=== PATIENT | female | born 1980 | race Caucasian/White ===

== ENCOUNTER 2024-07-28 19:58 | Emergency (ER) | payer SELFPAY ==
[~2024-07-28] VITALS: Ht 157.5 cm; Wt 81.6 kg
[2024-07-28 20:23] VITALS: O2SAT 100
[2024-07-28] MEDS ORDERED: NAPR-1176 MT (21:18)
[2024-07-28] MEDS ORDERED: CYCL5TAB MT (21:18)
[2024-07-28] MEDS: CYCLOBENZAPRINE 10MG TABLET PO ONE (22:35)
[2024-07-28 22:36] VITALS: BP 110/69; PULSE 68; RESP 19; TEMP 36.55848; O2SAT 100
[2024-07-28] MEDS: ACETAMINOPHEN 325MG TABLET PO ONE (22:36)
== END 2024-07-28 22:39 | disposition home or self-care (01) ==
LOC: ER 19:58
DX: S80.02XA Contusion of left knee, initial encounter (principal); W18.39XA Other fall on same level, initial encounter; Y93.89 Activity, other specified; Y92.89 Other specified places as the place of occurrence of the external cause; Y99.8 Other external cause status
CPT/HCPCS: 73562; 99283; Z7610

== ENCOUNTER 2024-10-11 01:39 | Emergency (ER) | payer MEDICAID, OTHER ==
[~2024-10-11] VITALS: Ht 157.5 cm; Wt 73.0 kg
[~2024-10-11 01:39] MED LIST: CYCL5TAB3 MT; NAPR-1176 MT
[2024-10-11 02:09] VITALS: O2SAT 100
[2024-10-11] MEDS ORDERED: HYDROCODONE/ACETAMINOPHEN 5/325MG TABLET PO ONE (03:00)
[2024-10-11] MEDS ORDERED: HYDR-4001 MT (05:11)
[2024-10-11] MEDS ORDERED: ONDA4TAB50 MT (05:11)
[2024-10-11] MEDS ORDERED: IBUP-2029 MT (05:11)
[2024-10-11 05:50] VITALS: TEMP 36.89184; O2SAT 100
[2024-10-11 06:05] VITALS: BP 120/87; PULSE 82; RESP 18
[2024-10-11] MEDS: HYDROCODONE/ACETAMINOPHEN 5/325MG TABLET PO NR (06:05)
[2024-10-11] MEDS: ONDANSETRON 4MG ODT PO ONE (06:05)
[2024-10-11] MEDS: ONDANSETRON 4MG ODT PO NR (06:07)
== END 2024-10-11 06:09 | disposition home or self-care (01) ==
LOC: ER 01:39
DX: S00.83XA Contusion of other part of head, initial encounter (principal); M54.9 Dorsalgia, unspecified; M54.2 Cervicalgia; G44.309 Post-traumatic headache, unspecified, not intractable; Y08.89XA Assault by other specified means, initial encounter; Y93.89 Activity, other specified; Y92.89 Other specified places as the place of occurrence of the external cause; Y99.8 Other external cause status
CPT/HCPCS: 99284; 70450; 81025; 70486; 72125; Q0162

== ENCOUNTER 2024-11-25 12:01 | Emergency (ER) | payer MEDICAID, OTHER ==
[~2024-11-25] VITALS: Ht 157.5 cm; Wt 78.0 kg
[~2024-11-25 12:01] MED LIST changes: +HYDR-4001 MT; +IBUP-2029 MT; +ONDA4TAB50 MT
[2024-11-25 12:02] VITALS: O2SAT 99
[2024-11-25 12:38] LABS: BASOPHILS % 0.4 % (0.0-2.0); EOSINOPHILS % 1.8 % (0.0-5.0); HEMOGLOBIN. 12.7 g/dL (12.0-16.0); MEAN CORPUSCULAR HEMOGLOBIN 30.2 pg (28.0-32.0); MEAN CORPUSCULAR HGB CONC 33.5 g/dL (31.0-37.0); MEAN CORPUSCULAR VOLUME 90.1 fL (81.0-99.0); MEAN PLATELET VOLUME 7.9 fl (7.4-10.4); MONOCYTES % 6.1 % (2.0-8.0); NEUTROPHILS % 61.7 % (40.0-76.0); PLATELET 369 x1000/uL (130-400); RED BLOOD CELL COUNT 4.22 mill/uL (4.2-5.4); RED CELL DISTRIBUTION WIDTH 13.9 % (11.6-14.6); WHITE BLOOD COUNT 8.8 x1000/uL (4.5-11.0)
[2024-11-25] MEDS: SODIUM CHLORIDE 0.9% 1,000 ML IV ONE (12:49)
[2024-11-25] MEDS: ONDANSETRON HCL 4MG/2ML INJ IV STA (12:49)
[2024-11-25 12:52] LABS: CHLORIDE 109 mEq/L (98-107); POTASSIUM 3.5 mEq/L (3.5-5.1); SODIUM 142 mEq/L (136-145)
[2024-11-25 12:53] LABS: CALCIUM 9.2 mg/dL (8.7-10.4); CARBON DIOXIDE 26 mEq/L (21-32)
[2024-11-25 12:56] LABS: INR 0.9; PROTHROMBIN TIME 10.3 sec (9.6-11.0)
[2024-11-25 12:58] LABS: CREATININE 0.7 mg/dL (0.6-1.0); GLUCOSE 104 mg/dL (70-105); UREA NITROGEN BLOOD 8 mg/dL (9-23)
[2024-11-25 13:00] LABS: ALANINE AMINOTRANSFERASE 26 IU/L (10-49); ASPARTATE AMINOTRANSFERASE 48 IU/L (<34); BILIRUBIN DIRECT 0.1 mg/dL (<=3.0); BILIRUBIN TOTAL 0.4 mg/dL (0.1-1.0)
[2024-11-25 13:01] LABS: HCG SCREEN NEGATIVE; PROTEIN TOTAL 7.5 g/dL (6.0-8.3)
[2024-11-25 13:31] LABS: ETHANOL BLOOD < 10 mg/dL (<10)
[2024-11-25] MEDS ORDERED: ONDA4TAB50 MT (14:51)
[2024-11-25] MEDS ORDERED: IBUP-2029 MT (14:51)
[2024-11-25 15:03] VITALS: BP 125/30; PULSE 68; RESP 16; TEMP 36.94740; O2SAT 98
== END 2024-11-25 15:14 | disposition home or self-care (01) ==
LOC: ER 12:09
DX: K80.50 Calculus of bile duct without cholangitis or cholecystitis without obstruction (principal); Z79.899 Other long term (current) drug therapy
CPT/HCPCS: 80076; 80048; 80320; 84703; 83690; 85025; 85610; 36415; 76705; 96361; 96374; 99285; J2405; J7030; G0480

== ENCOUNTER 2025-06-10 20:55 | Emergency (ER) | payer SELFPAY ==
[~2025-06-10] VITALS: Ht 165.1 cm; Wt 80.0 kg
[2025-06-10 21:11] VITALS: O2SAT 99
[2025-06-10] MEDS ORDERED: OXYCODONE HCL/ACETAMINOPHEN 5/325MG TABLET PO ONE (22:15)
[2025-06-10] MEDS ORDERED: IBUP-2029 MT (23:55)
[2025-06-11] MEDS: OXYCODONE HCL/ACETAMINOPHEN 5/325MG TABLET PO SCH (00:38)
[2025-06-11 00:39] VITALS: BP 110/64; PULSE 72; RESP 18; TEMP 36.8; O2SAT 100
== END 2025-06-11 05:25 | disposition home or self-care (01) ==
LOC: ER 20:57
DX: S13.4XXA Sprain of ligaments of cervical spine, initial encounter (principal); S09.90XA Unspecified injury of head, initial encounter; M25.562 Pain in left knee; M25.561 Pain in right knee; V89.2XXA Person injured in unspecified motor-vehicle accident, traffic, initial encounter; Y93.89 Activity, other specified; Y92.89 Other specified places as the place of occurrence of the external cause; Y99.8 Other external cause status
CPT/HCPCS: 73560; 70450; 72125; 99284; 73610; 73630; Z7610